=== PATIENT | female | born 1945 | race Caucasian/White ===

== ENCOUNTER 2016-07-13 12:32 | Outpatient (CLI) | payer MEDICARE ==
[~2016-07-13] VITALS: Ht 165.1 cm; Wt 55.9 kg
[~2016-07-13 12:32] MED LIST: K-DUR20 MEQ PO; KENALOG 0.1 % 115 GM TOPICAL; LIPITOR10 MG PO; LOTENSIN40 MG PO; NORVASC5 MG PO; PAXIL20 MG PO; PEPCID20 MG PO; PREDNISONE5 MG PO
[2016-07-13 14:07] VITALS: BP 123/73; Ht 165.1 cm; Wt 55.9 kg
--- NOTE | 2016-07-13 14:17 | NUR ---
1415 PROLIA INJECTION TO RIGHT LOWER QUADRANT ABDOMEN IN SQ TISSUE, WITHOUT PROBLEMS TO THE SITE NOTED. 1420 PATIENT DISCHARGED HOME WITH HER O2 ON AND NO DISTRESS WITH SPOUSE. AND INSTRUCTIONS
== END 2016-07-13 14:23 ==
LOC: D.OPS 12:32
DX: M81.0 Age-related osteoporosis without current pathological fracture (principal)

== ENCOUNTER 2016-10-24 12:33 | Inpatient (IN) | payer MEDICARE ==
[~2016-10-24] VITALS: Ht 162.6 cm; Wt 60.1 kg
[2016-10-24 13:11] LABS: BASOPHILS 0.2 % (0-2); EOSINOPHILS 0.5 % (0-7); HEMATOCRIT 44.5 % (36.0-48.0); HEMOGLOBIN 13.2 g/dL (12-16); IMMATURE GRANULOCYTES 0.5 % (0-5); LYMPHOCYTES 9.7 % (15-50); MCH 26.8 pg (26.0-34.0); MCHC 29.7 g/dL (31.0-37.0); MCV 90.3 fL (80.0-100.0); MEAN PLATELET VOLUME 10.7 fL (7.4-10.4); MONOCYTES 7.6 % (2-11); NEUTROPHILS 81.5 % (40-80); RBC 4.93 10x6/uL (4.00-5.40); RDW 18.4 % (11.5-14.5); WBC 18.3 10x3/uL (4.8-10.8)
[2016-10-24 13:20] LABS: PLATELET COUNT 164 10x3/uL (130-400)
[2016-10-24 13:21] LABS: APTT 24.3 SECONDS (22.8-39.4); INR 1.62 (0.85-1.17); PROTIME 19.2 SECONDS (11.6-15.0)
[2016-10-24 13:29] LABS: ALBUMIN 2.5 g/dL (3.4-5.0); BILIRUBIN - TOTAL 1.03 mg/dL (0.2-1.3); CALCIUM 8.1 mg/dL (8.5-10.1); CARBON DIOXIDE 30.1 mmol/L (21.0-32.0); CREATININE - SERUM 1.1 mg/dL (0.6-1.3); POTASSIUM - SERUM 4.1 mmol/L (3.5-5.1); PROTEIN - SERUM 5.6 g/dL (6.4-8.2)
--- NOTE | 2016-10-24 17:15 | NUR ---
ARRIVE TO ROOM VIA BED FROM ER ACCOMPANIED BY FAMILY AND ER STAFF. RESTLESS IN BED. IV LT AC INFUSING D5NS @ 50. SOB. O2 NON REBREATHER MASK ON. O2 SAT 99%. REFUSE SCDs DUE TO RESTLESSNESS. CONTINUE ADMISSION PROCESS. BED LOCKED AND LOW. CALL LIGHT IN REACH. TWO SIDERAILS UP.
[2016-10-24] MEDS ORDERED: MAGNESIUM OXID250 MG PO (17:21)
[2016-10-24] MEDS ORDERED: REVATIO20 MG PO (17:21)
[2016-10-24] MEDS ORDERED: FISH OIL 1,2001 CAP PO (17:22)
[2016-10-24] MEDS ORDERED: CALCIUM 600+D T1 TA1 PO (17:23)
[2016-10-24] MEDS ORDERED: GLUCOSAMINE & C1 CAP PO (17:24)
[2016-10-24 18:16] VITALS: BP 111/63; BMI 20.6
[2016-10-24 19:00] VITALS: BP 134/80
--- NOTE | 2016-10-24 20:06 | NUR ---
DR. CATES CALLED AFTER SPEAKING WITH DR. SINGER ABOUT PTS PACKING IN RIGHT NOSTRIL FOR UNCONTROLLED EPISTAXIS. THE TAMPON PACKING WAS PLACED BY PTS DAUGHTER WHO IS A PA IN [place]. THE TAMPON PACKING WAS PLACED AFTER UNCONTROLLED BLEEDING RESULTING IN APPROX 16 OZ OF BLOOD, DRAINING SO FAST, OUT OF HER NOSE AND DOWN HER THROAT. PT WAS ALSO SPITTING UP BLOOD A RESULT OF THIS. DR. CATES STATED VIA TELEPHONE THAT HE WILL SEE PT IN TWO DAYS TO REMOVE THE PACKING, BUT THAT A VAPO-THERM SHOULD NOT BE ADMINISTERED AT THIS TIME, WELL ANY NASAL CANULA USAGE. DR. CATES STATES THE PT IS TO REMAIN ON THE NON-REBREATHER MASK UNTIL FURTHER ASSESSMENT. FAMILY HAS BEEN NOTIFIED. THEY ARE REQUESTING OUT PT HOSPICE PER PTS REQUEST. PT IS CURRENTLY LYING IN BED ON HER LEFT SIDE, AWAKE, ALERT, DEMONSTRATES INCREASED AGITATION AND RESTLESSNESS, UNCONTROLLED OR HELPED BY THE PRN IV DOSE OF LORAZEPAM GIVEN IN THE ER. WILL ALSO CHECK WITH DR. SINGER ABOUT ANY FURTHER ORDERS. CONTINUE TO MONITOR CLOSELY. FAMILY REMAINS AT BEDSIDE AT THIS TIME.
--- NOTE | 2016-10-24 23:19 | NUR ---
PT WAS RESTING COMFORTABLY UNTIL I HAD TO REPOSITION HER ARM FOR HER IV FLUIDS AND ANTIBIOITIC. PT IS EASILY AGITATED AND DEMONSTRATES SEVERE ANXIETY R/T HER DISEASE PROCESS. IS AT BEDSIDE. HE IS A RETIRED SLEEP STUDY THERAPIST WHO HAS BEEN TAKING CARE OF PT AT HOME. HE STATED PT ONLY PREFERS THE NC FOR HER O2 ADMINISTRATION AND THAT SHE IS DISPLEASED WITH THE NON-REBREATHER MASK. WE DISCUSSED PTS O2 USE AT HOME, AND THE NEED FOR THE MASK VS NC. (ARCADIO) SEEMED UNAWARE THAT DELIVERING HOME O2 > THAN 5LPM WAS DANGEROUS TO THE PATIENT, INEFFECTIVE, AND ALSO A RESULT WAS THE REASON PT HAS SUCH AN UNCONTROLLED NOSE BLEED, PER DR. CATES. I ALSO DISCUSSED THE VAPOTHERM MACHINE ORDERED FOR PT AND THE REASON WE CANNOT USE IT AT THIS TIME A RESULT OF THE NC USAGE. STATED THAT HE HAS GIVEN PT ALL OF HER NIGHT TIME HOME MEDICATIONS AND THAT SHE IS WANTING TO AMBULATE TO THE BATHROOM, BUT THE O2 TUBING IS NOT LONG ENOUGH. WILL PROVIDE A BEDSIDE COMMODE, PT HAS TRIED TO USE THE BEDPAN WITH GREAT DIFFICULTY AND MINIMAL RESPONSE. WILL CONTINUE TO MONITOR CLOSELY.
[2016-10-25] VITALS: BP 169/97
--- NOTE | 2016-10-25 00:08 | NUR ---
JAMES PLACEMENT OFFERED TO PT AND FOR COMFORT AND REST PURPOSES PT HAS URINARY FREQUENCY AND URGENCY, INCONTINENT AT TIMES. PT HAS REFUSED, WILL CONTINUE TO MONITOR CLOSELY. REMAINS AT BEDSIDE.
--- NOTE | 2016-10-25 02:50 | NUR ---
PT LYING IN BED ON RIGHT SIDE, EYES CLOSED, RESPIRATIONS LABORED WITH NON-REBREATHER MASK AT 15LPM. AT BEDSIDE. PT IS HAVING CONSTANT URINARY URGENCY AND FREQUENCY, INCONTINENT FREQUENTLY AND HAS DIFFICULTY USING A BED MCKINNEY. PT STILL REFUSES JAMES CATHETER PLACEMENT. DENIES ANY OTHER NEEDS. CONTINUE TO MONITOR CLOSELY. I HAVE ASKED TO RAISE HOB BUT STATES THAT CAUSES PT TO BE MORE SOB THAN LYING FLAT. BED LOW, CALL LIGHT IN REACH, TO CALL WHEN NEEDING ANY ASSISTANCE, SIDE RAILS X 2.
--- NOTE | 2016-10-25 05:33 | NUR ---
PT LYING IN BED, EYES CLOSED, RESPIRATIONS EVEN AND SLIGHTLY LABORED. PT IS EASILY ROUSABLE TO VERBAL STIMULI. PTS IS AT BEDSIDE. CONTINUE TO MONITOR CLOSELY.
[2016-10-25 05:38] VITALS: BP 155/79
[2016-10-25 05:43] LABS: BASOPHILS 0.1 % (0-2); EOSINOPHILS 0 % (0-7); HEMATOCRIT 40.3 % (36.0-48.0); IMMATURE GRANULOCYTES 0.8 % (0-5); LYMPHOCYTES 2.2 % (15-50); MCH 26.8 pg (26.0-34.0); MCHC 29.8 g/dL (31.0-37.0); MCV 90.2 fL (80.0-100.0); MEAN PLATELET VOLUME 10.6 fL (7.4-10.4); MONOCYTES 0.7 % (2-11); NEUTROPHILS 96.2 % (40-80); RBC 4.47 10x6/uL (4.00-5.40); RDW 18.4 % (11.5-14.5); WBC 16.6 10x3/uL (4.8-10.8)
[2016-10-25 05:54] LABS: PLATELET COUNT 129 10x3/uL (130-400)
--- NOTE | 2016-10-25 06:43 | NUR ---
PTS IV HAS INFILTRATED DURING 0600 MED PASS.
--- NOTE | 2016-10-25 07:05 | NUR ---
RECEIVED REPORT. ASSUMED CARE OF PATIENT. PATIENT AT BEDSIDE. O2 SAT 96% AT THIS TIME ON NON REBREATHER MASK. PATIENT AWAKE/ALERT LYING ON LEFT LATERAL SIDE. DENIES NEEDS AT THIS TIME. NO DISTRESS.
[2016-10-25 07:11] LABS: ANION GAP 12.8 mmol/L (8-16); CALCIUM 7.9 mg/dL (8.5-10.1); CARBON DIOXIDE 27.8 mmol/L (21.0-32.0); CREATININE - SERUM 1.3 mg/dL (0.6-1.3); PHOSPHOROUS 4.5 mg/dL (2.5-4.9); POTASSIUM - SERUM 4.6 mmol/L (3.5-5.1)
[2016-10-25 07:38] LABS: INR 1.58 (0.85-1.17); PROTIME 18.6 SECONDS (11.6-15.0)
[2016-10-25 08:05] LABS: APTT 26.8 SECONDS (22.8-39.4)
--- NOTE | 2016-10-25 08:21 | HP ---
PATIENT: LUCIANA THOMPSON MEDICAL RECORD: [id number] ACCOUNT: [id number] LOCATION:[address] : 45 ADMISSION DATE: 10/24/16 HISTORY AND PHYSICAL EXAMINATION Admission History and Physical DATE OF ADMISSION: 10/24/2016 REASON FOR ADMISSION: Hypoxia. HISTORY OF PRESENT ILLNESS: This is a 71-year-old female, who was followed by Dr. 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 Apparently, she has been having worsening hypoxia and the report from the patient and family is that Dr. Kan does not know what else she can do. I have Dr. Kan's note from 09/29/2016. Basically, she did not want to come in today, but apparently she is having nosebleeds over the last few weeks and has really gotten worse. The patient's son and a [id number] flew in today and the [id number]-bsy is a nurse practitioner who practices in ER in [place]. She tried to stop the nosebleed with Afrin nasal spray, after 20 minutes that did not work, so she packed it. Unfortunately, the patient's O2 sat went down to 58%, so they brought her into the Emergency Room. She is now on a nonrebreather mask. Pulmonary has been consulted. Chest x-rays do show bibasilar infiltrates and pulmonary fibrosis as well. She is admitted. PAST MEDICAL HISTORY AND PAST SURGICAL HISTORY: Coronary artery disease, hypertension, pulmonary hypertension and chronic respiratory failure. She has had a tonsillectomy, breast lumpectomy, thoracotomy for open lung biopsy and tissue obtained. She had a history of melanoma and history of basal cell carcinoma. HABITS: Previously smoke, quit at age 43. ALLERGIES: SULFADIAZINE. HOME MEDICATIONS: Prednisone 5 mg a day, sildenafil 20 mg 3 times a day, Mag-Ox daily, fish oil 1200 mg daily, calcium plus vitamin D daily, glucosamine/chondroitin daily, amlodipine 5 mg a day, Lipitor 10 mg a day, benazepril 40 mg a day, Pepcid 20 mg a day, Paxil 20 mg a day, potassium 20 mEq once a day. FAMILY HISTORY: Father had [place] at age 43. Mother with history of heart disease, renal failure and stroke. REVIEW OF SYSTEMS: GENERAL: No major weight changes, fever, chills or night sweats. HEENT: No headaches. She has had the nasal bleeding. CARDIOVASCULAR: History of coronary artery disease with stents. Denies chest pain at this time. RESPIRATORY: She has chronic shortness of breath. She desats on 6 liters of oxygen when moving. GASTROINTESTINAL: No abdominal pain, diarrhea or constipation. No melena. GENITOURINARY: No significant problems there. MUSCULOSKELETAL: No significant pain in the joints. HISTORY AND PHYSICAL [id number] LUCIANA THOMPSON NEUROLOGIC: No migraine headaches or seizure disorder. PSYCHIATRIC: Denies depression or melancholia. PHYSICAL EXAMINATION: VITAL SIGNS: Temperature 97.7, pulse 100, respirations of 24, blood pressure is 134/80 and O2 sats ranging 88% to 92%. GENERAL: She is awake. She has been restless today, was given Ativan once in the ER and that made her worse as far as restlessness, associated an intolerable side effect to Ativan. HEENT: She has a Ventimask on and a packing at the right nares. NECK: Supple. HEART: Regular rate and rhythm. LUNGS: With diffuse crackles. No wheezes. ABDOMEN: Soft. Nontender. EXTREMITIES: No edema. LABORATORY WORK: CBC with a white count of 18,300, hemoglobin 13.2, hematocrit 44.5 and platelet count 164,000 and 81% neutrophils. INR 1.62. Sodium 148, potassium 4.1, chloride 111, CO2 of 30, BUN 37, creatinine 1.1, glucose 123, calcium 8.1, magnesium 1.9. Liver functions: ALT is a little elevated at 76 and AST is normal. RADIOLOGIC DATA: Chest x-ray shows chronic obstructive pulmonary disease with fibrosis and bibasilar infiltrates. ASSESSMENT: 1. Pulmonary fibrosis. 2. Pneumonia. 3. Jfmli-iu-auxbzsi respiratory failure. 4. History of heart disease. PLAN: We will consult ENT. I spoke with Dr. Sommers and there was a question of a possibly taking out the packing, so she could have nasal cannula instead of the mask, which she hates. Dr. Sommers told me that this type of nasal bleed, which is most likely due to high flow oxygen is different from somebody who comes in to the office with just a nosebleed that gets cauterized. This is actually more of ulceration and if we try to cauterize that, it is just going to get larger and large and it is not going to help. The recommendation right now is to keep the packing in for 2 or maybe 3 days and keep her on this Ventimask for right now. I spoke with the family about that. The patient has asked about hospice and we will get case management on the case for that. It sounds like at home she has been on 6 liters up to 9 liters, but when she gets up and go to the bathroom, she desats quickly and her then increases her oxygen and she may be on as high as 16 liters at times. I am not sure if Dr. Kan is aware of what is going on at home of whether that is necessarily a good thing for her, but the idea is to keep her comfortable right now. Dr. Ly has seen her and code status has been discussed with him. She is a med code only with Emergency drugs only at this time. Other tests and procedures as warranted. TRANSINT:[id number] Voice Confirmation ID: [id number] DOCUMENT ID: [id number] HISTORY AND PHYSICAL [id number] LUCIANA THOMPSON WILLIAM MD at 0821 CC: [id number] DICTATION DATE: 10/24/162150 COMPLIANCE TECHNICIAN: 10/25/16 0117 ADM IN [facility] [address] [place] [address]
[2016-10-25 09:42] VITALS: Ht 162.6 cm; Wt 60.1 kg
--- NOTE | 2016-10-25 09:45 | NUR ---
I PLACED BILAT SCDS ON PT. PATENT.
--- NOTE | 2016-10-25 10:05 | NUR ---
IV ACCESS-22 GAUGE INSERTED IN LEFT FOREARM. GINGER GORE RN
[2016-10-25 12:00] VITALS: BP 131/77
--- NOTE | 2016-10-25 12:09 | NUR ---
Patient Name: LUCIANA THOMPSON Admission Status: ER Accout number: [id number] Admission Date: 10-24-2016 : 1945 Admission Diagnosis: Attending: ANTONIO Current LOS: 1 Anticipated DC Date: 10-25-2016 Planned Disposition: Hospice Medical Facility Primary Insurance: MEDICARE A & B PLANNED EXTERNAL PROVIDER: [facility] Discharge Planning Comments: * Is the patient Alert and Oriented? Yes 0 * How many steps to enter\exit or inside your home? 2 0 * PCP DAIRY INSPECTOR ZANDER UMA[facility]A [facility] 0 * Pharmacy [facility] 0 * Preadmission Environment Home with Family 0 * ADLs Independent 0 * Equipment Oxygen Wheelchair 0 * Other Equipment HOME AND PORTABLE LIQUID OXYGEN [facility] - MEDICAL EQUIPMENT PROVIDER 0 * List name and contact numbers for known caregivers / representatives who currently or will assist patient after discharge: ARCADIO THOMPSON, SPOUSE, 0 * Community resources currently utilized None 0 * Please name any agencies selected above. NONE 0 * Additional services required to return to the preadmission environment? Yes 0 * Can the patient safely return to the preadmission environment? Yes 0 * Has this patient been hospitalized within the prior 30 days at any hospital? No 0 CM RECEIVED HOSPICE CONSULT ORDER, MET WITH PT AND FAMILY IN ROOM TO DISCUSS DISCHARGE PLANNING AND NEEDS. PT REPORTS LIVING AT HOME INDEPENDENTLY WITH HER SPOUSE. PT HAS HOME AND PORTABLE LIQUID OXYGEN WELL WHEELCHAIR PROVIDED BY [facility]. PT HAS NO OUTSIDE SERVICES ASSISTING IN THE HOME. CM DISCUSSED AVAILABILITY OF HOME HEALTH, REHAB SERVICES AND MEDICAL EQUIPMENT AND HOSPICE. PT AND FAMILY WOULD LIKE TO SPEAK TO [facility]. IMPORTANT MESSAGE FROM [employer] PROVIDED AND EXPLAINED. CM CALLED [facility], , SPOKE TO ERNA WHO REPORTS A NURSE WILL BE BY SHORTLY TO EVALUATE AND MEET WITH PT. CM FAXED REFERRAL TO [phone]. CM CALLED [facility], [phone], SPOKE TO JEN WHO REPORTS A NURSE WILL BE BY IN ABOUT 45 MINUTES TO EVALUATE AND MEET WITH PT. CM FAXED REFERRAL TO [phone]. PT AND FAMILY NOTIFIED IN ROOM. CM WAITING HOSPICE EVALUATION RESULTS FROM [facility]. CM WAITING PT/FAMILY DECISION REGARDING HOSPICE. Armored Transport Service Manager: Flash Grajeda
--- NOTE | 2016-10-25 15:50 | NUR ---
PATIENT REFUSED REVATIO AT THIS TIME IT MAY HAVE BEEN THE CAUSE OF HER EPITAXIS. TAMPON REMAINS PACKED TO RIGHT NARE. SITTING UP IN BED, FAMILY AT BEDSIDE. CONSUMING MEAL AT THIS TIME. NO DISTRESS.
[2016-10-25 16:28] VITALS: BP 120/70
--- NOTE | 2016-10-25 17:47 | NUR ---
INCONTINENT CARE PROVIDED AT THIS TIME. FAMILY AT BEDSIDE. NO DISTRESS. CALL LIGHT WITHIN REACH.
[2016-10-25 20:00] VITALS: BP 90/56
--- NOTE | 2016-10-25 20:10 | NUR ---
PT LYING IN BED ON LEFT SIDE, NON-REBREATHER MASK ON @ 15 LPM. RT CHRISTINE ADMINISTERING UPDRAFT AT THIS TIME. PT IS AWAKE, ALERT, ORIENTED. AT BEDSIDE. CONTINUE TO MONITOR CLOSELY.
[2016-10-26] VITALS: BP 104/72
--- NOTE | 2016-10-26 02:34 | NUR ---
PT LYING ON HER BACK, EYES CLOSED, RESPIRATIONS LABORED BUT EVEN. NON-REBREATHER MASK @ 15LPM IN PLACE. AT BEDSIDE. CONTINUE TO MONITOR CLOSELY.
[2016-10-26 04:00] VITALS: BP 100/70
--- NOTE | 2016-10-26 07:44 | NUR ---
PT LAYING TO LEFT SIDE SLEEPING NO S/S DISTRESS NOTED WILL CONT TO MONITOR
[2016-10-26 08:10] VITALS: BP 125/79
--- NOTE | 2016-10-26 11:18 | NUR ---
PT GAVE NURSING STAFF A CARD THAT STATED PT WANTED TO DONATE HER BODY TO SCIENCE. I MADE COPIES OF BOTH SIDES AND PLACED ON THE FRONT OF THE CHART. IS BECOMING ANGRY WITH NURSING STAFF AT THIS TIME SAYING THAT WE NEED TO "CLUSTER CARE". EXPLAINED TO HIM THAT WE COULD ONLY GIVE THINGS 1 HOUR EARLY DEPENDING ON WHAT WE WERE DOING WHETHER IT BE MEDS OR VS. PT STATES "I DO NOT CARE. YALL NEED TO LEAVE HER ALONE AND LET HER REST MORE." I TOLD THAT I WOULD TRY MY BEST TO CLUSTER CARE MUCH POSSIBLE. PT BP DIASTOLIC PRESSURE IS A LITTLE HIGH. DOES NOT WANT TREATMENT AT THIS TIME HE IS RELATING IT TO HER ANXIETY AND WANTS US TO LET HER REST
[2016-10-26 12:17] VITALS: BP 122/102
[2016-10-26 16:30] VITALS: BP 112/73
--- NOTE | 2016-10-26 18:32 | NUR ---
PT RESTING QUIETLY SEVERAL FAMILY MEMBERS AT BEDSIDE DENY NEEDS WILL CONT TO MONITOR
--- NOTE | 2016-10-26 19:44 | NUR ---
ASSESSMENT COMPLETE, A&O. 02 AT 15 LITER VIA NON-REBREATHER MASK. IV TO LEFT FOREARM WITH NS INFUSING AT 75. MULTIPLE FAMILY MEMBERS AT BED SIDE, BED LOW, CL IN REACH, WILL CONT TO MONITOR.
[2016-10-26 20:00] VITALS: BP 101/69
--- NOTE | 2016-10-26 21:04 | NUR ---
HS MEDS GIVEN, AND SONS AT BED SIDE.
[2016-10-27] VITALS: BP 100/74
--- NOTE | 2016-10-27 00:32 | NUR ---
D/W EARLIER. HE ASKED IF HE COULD USE A REGULAR MASK AT HOME AND JUST PUT DUCT TAPE OVER IT TO INCREASE O2. I EXPLAINED YOU MUST HAVE AN EXIT FOR CO2 OR SHE WILL RETAIN IT. HE TOLD ME HE "RIGGED" SOMETHING AT HOME PREVIOUSLY AND THAT IT WAS "HIS FAULT" SHE WAS HERE. SAID I HAD HEARD THIS. I EXPLAINED THAT JUST BECAUSE YOU HAVE THE MEANS TO CREATE THINGS AT HOME DOES NOT MEAN YOU SHOULD. DOES NOT FEEL THE STRAPS ON THE NRB ARE NGO ENOUGH. I EXPLAINED THAT IT HAS BEEN SUFFICIENT THE THREE NIGHTS I HAVE BEEN HERE. PT SPO2 HAS REMAINED STABLE ALL THREE NIGHTS. PT STATED IT WAS FINE WITH HER. I STATED LONG PT WAS COMFORTABLE WITH IT THAT WAS MY MAIN OBJECTIVE. PT TOLD TO JUST SHUT UP. PT SON WAS IN ROOM DURING THIS DISCUSSION.
--- NOTE | 2016-10-27 00:33 | NUR ---
RT AT BED SIDE, PT REFUSED UPDRAFT TX.
--- NOTE | 2016-10-27 00:36 | NUR ---
VISCOSITY TESTER AT BEDSIDE TO OBTAIN VITALS, CALL LIGHT IN REACH. WILL CONTINUE WITH PLAN OF CARE.
--- NOTE | 2016-10-27 02:49 | NUR ---
SOLUMEDROL 60 MG GIVEN TO LEFT ARM IV, PT STATING "JUST LEAVE ME ALONE, PLEASE DONT MESS WITH ME" REASSURED PT THAT I WAS THERE TO HELP HER AND I WAS ADMINISTERING MEDICATION THAT WILL HELP HER. ASLEEP AT BED SIDE.
[2016-10-27 04:00] VITALS: BP 118/76
--- NOTE | 2016-10-27 07:49 | NUR ---
AM ROUNDING PERFORMMED WITH PATIENT APPEARING TO BE ALSEEP, LAYING ON LEFT SIDE WITH NON REBREATHER ON. MALE MEMBER ALSEEP WITH CPAP ON IN CHAIR. NS SEEN INFUSING AT 75 CC/HR. PATIENT IS A MED CODE ONLY. SCD'S ARE ON BED BUT NOT IN USE. WILL MONITOR AND ASSESS IV SITE WHEN AWAKE.
[2016-10-27 08:00] VITALS: BP 109/67
--- NOTE | 2016-10-27 09:26 | NUR ---
CALLED AND TALKED TO AMBERLY AT DR SINGER'S OFFICE R/T BLOOD PRESSURE 109/67 AND LOTENSIN 10 MG. SHE SAID SHE WOULD ASK HIM AND CALL ME BACK. AWAITING CALL BACK.
--- NOTE | 2016-10-27 09:29 | NUR ---
Patient Name: LUCIANA THOMPSON Admission Status: ER Accout number: [id number] Admission Date: 10-24-2016 : 1945 Admission Diagnosis:PULMONARY FIBROSIS, UNSPECIFIED Attending: ANTONIO Current LOS: 3 Anticipated DC Date: 10-25-2016 Planned Disposition: Hospice Medical Facility Primary Insurance: MEDICARE A & B PLANNED EXTERNAL PROVIDER: [facility] OR [facility] Discharge Planning Comments: CM RECEIVED CALL FROM [facility] WHO REPORTED THAT PT'S FAMILY IS SCHEDULED TO TOUR THE [facility] SOMETIME TODAY; THEY ARE STILL WAITING FAMILY DECISION REGARDING HOSPICE. CM TO CONTINUE TO FOLLOW AND ASSIST NEEDED. College Teacher: Flash Grajeda
--- NOTE | 2016-10-27 10:17 | NUR ---
AMBERLY TO CALL BACK FROM DR SINGER'S OFFICE AND WE ARE TO HOLD THE LOTENSIN FOR TODAY.
[2016-10-27 12:00] VITALS: BP 107/89
--- NOTE | 2016-10-27 12:33 | NUR ---
ASSISTED X 2 TO BSC FOR PATIENT TO VOID. BED LINENS AND GOWN CHANGED, PATIENT STILL DID NOT WANT TO WASH UP FOR AM CARE.
--- NOTE | 2016-10-27 14:05 | NUR ---
SCRUBBED PATIENT'S FINGER NAILS TO TRY AND GET THE BLOOD OUT FROM UNDER THE NAIL BED. GOT MOST OF IT OUT.
[2016-10-27 16:00] VITALS: BP 107/69
[2016-10-27] MEDS ORDERED: SOLU-MEDRO40 MG/1 M1 IV (16:03)
--- NOTE | 2016-10-27 16:13 | NUR ---
REPORT CALLED TO RUFUS AT [facility]. SHE WILL BE GOING TO ROOM 558. WE ARE TO LEAVE THE IV IN.
--- NOTE | 2016-10-27 16:50 | NUR ---
[facility] HAS BEEN CALLED FOR TRANSPORT. THEY HAVE BEEN INFORMED THEY ARE NOT TO USE NASAL CANNULA. AWAITING RIDE.
--- NOTE | 2016-10-27 18:05 | NUR ---
STILL AWAITING AMBULANCE FOR DISCHARGE.
--- NOTE | 2016-10-27 18:20 | NUR ---
CALLED [facility] TO SEE WHY THEY HAVE NOT BEEN HERE TO GALLERY OR MUSEUM GUIDE THE PATIENT YET. THEY SAID THAT IT WOULD BE ANOTHER 30 MIN TO AN HOUR. THIS IS RELAYED TO THE PATIENT AND HER SONS.
--- NOTE | 2016-10-27 18:55 | NUR ---
IV TO LEFT FA STARTING TO LEAK. CATH TIP INTACT AND IV IS REMOVED. X 4 STICKS, 24 G TO RIGHT HAND. SALINE LOCK.
--- NOTE | 2016-10-27 19:15 | NUR ---
[facility] HERE TO GET PATIENT. DISCHARGED TO [facility] ROM 558.
== END 2016-10-27 19:17 | disposition home health service (06) | DRG 177 ==
LOC: D.ER 12:33 → D.M2 15:45
PROVIDERS: Emergency Medicine; Internal Medicine Pulmonary Disease; ADMIT Family Medicine
DX: J69.0 Pneumonitis due to inhalation of food and vomit (principal); J96.21 Acute and chronic respiratory failure with hypoxia; I50.30 Unspecified diastolic (congestive) heart failure; D68.9 Coagulation defect, unspecified; J98.11 Atelectasis; R04.0 Epistaxis; I25.10 Atherosclerotic heart disease of native coronary artery without angina pectoris; I27.2 Other secondary pulmonary hypertension; I11.0 Hypertensive heart disease with heart failure; E78.5 Hyperlipidemia, unspecified; Z87.891 Personal history of nicotine dependence